=== PATIENT | female | born 1995 | race Caucasian/White ===

== ENCOUNTER 2023-03-12 20:34 | Emergency (ER) | payer SELFPAY ==
[2023-03-12 20:35] VITALS: BP 127/72; PULSE 73; RESP 18; TEMP 36.8; O2SAT 98
--- NOTE | 2023-03-12 20:46 | ED_ITS ---
HPI - Extremity Injury (Lower) General Chief Complaint: Extremity Injury, Lower Stated Complaint: right lower leg pain Time Seen by Provider: 03/12/23 20:38 Source: patient Mode of arrival: ambulatory Limitations: no limitations History of Present Illness HPI Narrative: patient presents with sudden onset of pain had the right lower leg anteriorly laterally slightly distal to the right knee. Patient denies any trauma. 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 She denies any fever, chills, nausea, vomiting, trauma, chest pain or shortness of breath Review of Systems Review of Systems: All systems reviewed & are unremarkable except as noted in HPI and below Exam Narrative: General appearance: Well-developed, well-nourished Skin: Normal color Chest and respiratory: Airway patent, no respiratory distress, no accessory muscle use Heart: Regular rate/rhythm Vascular: Normal peripheral pulses, normal capillary refill. Musculoskeletal: right lower leg examination showed varicose veins anterior lateral just distal to the right knee, waldemar like feeling severely tender bluish discoloration with some varicose veins of the right leg more than the left leg Neurologic: Alert and oriented ?3, TENONER OPERATOR is normal as tested, no gross motor deficit Course Vital Signs Vital signs: Vital Signs Temperature 36.8 C 03/12/23 20:35 Temperature 36.8 C 03/12/23 20:35 MDM - Extremity Injury (Lower) MDM Narrative Medical decision making narrative: superficial thrombophlebitis secondary to varicose vein secondary to long hours of standing a day secondary to her job as a cook. Differential Diagnosis Differential diagnosis: Likely other ( Varicose vein, thrombophlebitis) Critical Care Time Critical Care Time Critical Care Time: No Discharge Plan Discharge Clinical Impression: Thrombophlebitis, Varicose vein of leg Patient Disposition: Home, Self-Care Condition: Stable Instructions: Superficial Thrombophlebitis (ED) Additional Instructions: keep leg elevated Compression stocking Warm compresses 10-15 minutes up to 5 times a day Ibuprofen 600 every 6 hours as needed Avoid longstanding. Follow-up/Referrals: UNKNOWN,DOCTOR [Primary Care Provider] - Stand Alone Forms: Work/School Release IP
== END 2023-03-12 21:01 | disposition home or self-care (01) ==
PROVIDERS: Emergency Provider Emergency Medicine
DX: I80.01 Phlebitis and thrombophlebitis of superficial vessels of right lower extremity (principal); I83.92 Asymptomatic varicose veins of left lower extremity
CPT/HCPCS: 99281

== ENCOUNTER 2023-06-16 16:12 | Emergency (ER) | payer SELFPAY ==
[2023-06-16 16:13] VITALS: BP 136/93; PULSE 64; RESP 20; TEMP 36.8; O2SAT 97
[2023-06-16 16:29] VITALS: PULSE 72; RESP 18; O2SAT 99
[2023-06-16 16:30] VITALS: O2SAT 99
[2023-06-16 16:31] VITALS: BP 133/73; O2SAT 99
--- NOTE | 2023-06-16 16:40 | ED.URI ---
HPI - URI/Sore Throat General Chief Complaint: Upper Respiratory Infection Stated Complaint: high bp; dizziness Time Seen by Provider: 06/16/23 16:26 Source: patient Mode of arrival: ambulatory Limitations: no limitations History of Present Illness HPI Narrative: Patient is a 28-year-old female with significant past medical history who presents today for dizziness and URI. Patient reports that she had dizziness today and felt the room spinning and she an episode of vertigo. She has been battling a URI for the last week now. She states it has been getting worse she has had cough, congestion, rhinorrhea. She is his blood pressure from like it was a little high at times rate was little up but she was very worried because her mother made her worry about it and the symptoms of vertigo. MD elicited complaint: rhinorrhea, nasal congestion and other (vertigo) Onset (ago): hour(s) Consistency: constant Severity: mild Description of mucous: clear Able to tolerate fluids by mouth: Yes Exacerbating factors: nothing Relieving factors: nothing Associated symptoms: other (dizziness ) Treatments prior to arrival: none Review of Systems Review of Systems: All systems reviewed & are unremarkable except as noted in HPI and below Constitutional: Constitutional: Reports as per HPI Eyes: Eyes: Reports no additional eye complaints ENT: Reports as per HPI Cardiovascular: Cardiovascular: Reports no additional cardiovascular complaints Respiratory: Respiratory: Reports chest congestion and Reports cough Gastrointestinal: Gastrointestinal: Reports no additional gastrointestinal complaints Genitourinary: Genitourinary: Reports no additional female genitourinary complaints Musculoskeletal: Musculoskeletal: Reports no additional musculoskeletal complaints Integumentary/Breasts: Skin/Breast: Reports system reviewed and no additional complaints, except as docu Neurologic: Reports vertigo and Reports dizziness Psychiatric: Psychiatric: Reports no additional psychiatric complaints Endocrine: Endocrine: Reports no additional endocrine complaints Hematologic/Lymphatic: Hematologic/Lymphatic: Reports no additional hematologic/lymphatic complaints Allergic/Immunologic: Allergic/Immunologic: Reports no additional allergic/immunologic complaints Exam Const: General: healthy appearing Nutritional Appearance: well nourished Orientation/consciousness: patient oriented x3 HENMT: Head: normal to inspection Ears: external ears normal Face/Nose/Sinus: Normal external nose present Face and sinus: normal facial exam Eyes: Conjunctivae: conjunctivae normal Pupils: Equal, round and reactive pupils present EOM: EOMs intact bilaterally Neck: Neck: normal visual inspection Chest: Chest palpation & inspection: normal inspection of the chest Resp: Effort & Inspection: normal respiratory effort Auscultation: clear to auscultation bilaterally Cardio: Rate: regular rate Rhythm: regular rhythm GI: GI Palp: Yes Soft to palpation : General: Yes bladder normal to palpation Back/Spine/Pelvis: Back: no CVA tenderness Skin: General skin exam: normal color Rashes: no rashes Wounds: no wounds Neuro: General: patient oriented x3 Cranial nerves: Yes Nystagmus not present Speech: normal speech Gait exam (Neuro): Normal gait present Extrem: General: normal to inspection Psych: Mental Status: mental status grossly normal Course Vital Signs Vital signs: Vital Signs Temperature 98.2 F 06/16/23 16:13 Pulse Rate 64 06/16/23 16:13 Respiratory Rate 20 06/16/23 16:13 Blood Pressure 136/93 H 06/16/23 16:13 Pulse Oximetry 97 06/16/23 16:13 Oxygen Delivery Room Air 06/16/23 16:13 Temperature 98.2 F 06/16/23 16:13 Pulse Rate 64 06/16/23 16:13 Respiratory Rate 20 06/16/23 16:13 Blood Pressure 136/93 H 06/16/23 16:13 Pulse Oximetry 97 06/16/23 16:13 Oxygen Delivery Room Air 06/16/23 16:13 MDM - URI/Sor
[2023-06-16 16:45] VITALS: O2SAT 100
[2023-06-16 16:47] VITALS: BP 128/81; PULSE 74; RESP 20; O2SAT 99
== END 2023-06-16 16:51 | disposition home or self-care (01) ==
PROVIDERS: Emergency Provider Family Medicine; PCP Family Medicine
DX: J06.9 Acute upper respiratory infection, unspecified (principal); R42 Dizziness and giddiness
CPT/HCPCS: 99283

== ENCOUNTER 2023-09-27 15:39 | Outpatient (CLI) | payer OTHER, SELFPAY ==
--- NOTE | 2023-09-27 15:46 | ECHO_ITS ---
Patient Info Name: Hollie Keating Age: 28 years : 1995 Gender: Female Ht: 64 in Wt: 220 lbs BSA: 2.17 m2 HR: 85 bpm BP: 124 / 79 mmHg Technical Quality: Fair Exam Date: 09/27/2023 3:39 PM Exam Location: Echo Lab Patient Status: Outpatient Admit Date: 09/27/2023 Staff Ordering Physician: Larry David MD Street Commissioner: Xavi Patel RDCS Attending Provider: Larry David MD Referring Physician: Joann DIETZ; Exam Type: CA echo doppler color flow Study Info Indications R94.31 - Abnormal electrocardiogram ECG EKG Complete two-dimensional, color flow and Doppler transthoracic echocardiogram is performed. Summary 1. Complete two-dimensional, color flow and Doppler transthoracic echocardiogram is performed. 2. Left ventricular chamber dimension is normal. 3. Left ventricular systolic function is normal, estimated at 60-65%. 4. The left ventricular diastolic function is normal. 5. E/e' 7 is not elevated. 6. There is trace tricuspid valve regurgitation. 7. No pulmonary hypertension, estimated pulmonary arterial systolic pressure is 17 mmHg. Left Ventricle E/e' 7 is not elevated. Left ventricular chamber dimension is normal. Left ventricular systolic function is normal, estimated at 60-65%. The left ventricular diastolic function is normal. Right Ventricle Right ventricular systolic function is normal and with normal TAPSE 2.4 cm. Right ventricular chamber dimension is normal. Left Atria Left atrial chamber dimension is normal. Right Atria Right atrial chamber dimension is normal. Aortic Valve The aortic valve is not well visualized. Cannot determine number of aortic valve leaflets. There is no aortic valve stenosis. There is no aortic valve regurgitation. Pulmonic Valve There is no pulmonic regurgitation. Mitral Valve There is no mitral valve stenosis. There is no mitral valve regurgitation. Tricuspid Valve There is trace tricuspid valve regurgitation. No pulmonary hypertension, estimated pulmonary arterial systolic pressure is 17 mmHg. Pericardium/Pleural There is no pericardial effusion. Inferior Vena Cava Normal inferior vena cava with >50% collapse upon inspiration consistent with normal right atrial pressure, 5 mmHg. Aorta The aortic root size at the sinus of Valsalva is normal. Left Ventricular Outflow Tract Name Value Normal LVOT 2D LVOT Diameter 2.1 cm LVOT Doppler LVOT Peak Velocity 123 cm/s LVOT Peak Gradient 6 mmHg LVOT Mean Gradient 3 mmHg LVOT VTI 25 cm LVOT VTI/AV VTI Ratio 0.8 LVOT Stroke Volume 82 ml Pulmonic Valve Name Value Normal PV Doppler PV Peak Velocity 99 cm/s PV Peak Gradient 4 mmHg Mitral Valve
== END 2023-09-27 15:40 | disposition home or self-care (01) ==
LOC: CHSIMG 15:40
PROVIDERS: PCP Family Medicine; Visit Provider Family Medicine
DX: R94.31 Abnormal electrocardiogram [ECG] [EKG] (principal)
CPT/HCPCS: 93306

== ENCOUNTER 2024-01-24 18:02 | Emergency (ER) | payer OTHER, SELFPAY ==
[2024-01-24] VITALS (9 sets, daily range): BP systolic 116–132; BP diastolic 62–74; PULSE 64–101; RESP 12–21; TEMP 36.8–37.2; O2SAT 95–99
--- NOTE | ~2024-01-24 | XR_ITS ---
EXAMINATION: XR chest 1V portable DATE: 01/24/2024 18:41 INDICATION: Shortness of breath. TECHNIQUE: A single frontal view of the chest was obtained. COMPARISON: None. FINDINGS: There is no pneumonia, pleural effusion, or pneumothorax. The heart size is normal. IMPRESSION: 1. No acute cardiopulmonary disease. Reviewed, dictated and finalized at location A.
--- NOTE | 2024-01-24 18:29 | PC.NURSE ---
covid test administered and sent to lab at same time as strep test
[2024-01-24] MEDS: IPRATROPIUM 0.5 MG/ALBUTEROL SULFATE 2.5 MG AMPUL.NEB 3 ML INHALATION (18:44)
[2024-01-24 18:48] LABS: Basophils Absolute Auto 0.04 K/mm3 (0.00-0.10); Basophils Percent Auto 0.3 % (0.0-1.0); Eosinophils Percent Auto 0.7 % (1.0-6.0); Hematocrit 42.3 % (35.0-49.0); Hemoglobin 14.5 g/dL (12.0-15.0); Immature Granulocyte Absolute 0.08 K/mm3 (0.00-0.00); Immature Granulocyte Percent A 0.6 % (0.0-0.0); Lymphocytes Percent Auto 29.1 % (18.0-42.0); Mean Corpuscular HGB Conc 34.3 g/dL (32-36); Mean Corpuscular Volume 87.6 fL (78.0-102.0); Mean Platelet Volume 9.4 fl (9.2-11.8); Monocytes Absolute Auto 1.05 K/mm3 (0.10-0.90); Monocytes Percent Auto 7.6 % (2.0-11.0); Neutrophils Absolute Auto 8.49 K/mm3 (1.70-7.20); Neutrophils Percent Auto 61.7 % (50.0-70.0); Platelet Count Result 325 K/mm3 (150-420); Red Blood Count 4.83 M/mm3 (4.20-5.40); Red Cell Distribution Width 12.7 % (11.6-14.4); White Blood Count 13.8 K/mm3 (4.8-10.8)
[2024-01-24 19:04] LABS: Alanine Aminotransferase 40 U/L (14-59); Albumin Level 3.9 g/dL (3.4-5.0); Alkaline Phosphatase 102 U/L (46-116); Anion Gap 10 mmol/L (4-12); Aspartate Amino Transferase 28 U/L (15-37); Bilirubin,Total 0.2 mg/dL (0.00-1.00); Blood Urea Nitrogen 17 mg/dL (7-18); Calcium 9.1 mg/dL (8.5-10.1); Carbon Dioxide 28 mmol/L (21-32); Chloride 101 mmol/L (98-108); Estimated CRCL calculation 104 ml/min; Estimated Glomerular Filt Rate > 60; Glucose 92 mg/dL (70-99); Osmolality Calculated 289 mOsm/kg (285-295); Potassium 3.5 mmol/L (3.5-5.1); Sodium 139 mmol/L (136-145); Total Protein 8.3 g/dL (6.4-8.2)
[2024-01-24 19:15] LABS: Strep Group A RT-PCR NOT DETECTED (Negative)
[2024-01-24 19:26] LABS: Influenza A QL RT-PCR Negative (Negative); Influenza B QL RT-PCR Negative (Negative); RSV RNA, RT-PCR Negative (Negative); SARS-CoV-2 RNA PCR Negative (Negative)
--- NOTE | 2024-01-24 19:33 | ED.SOB ---
HPI - SOB/Dyspnea General Chief Complaint: Shortness of Breath/Dyspnea Stated Complaint: SOB Time Seen by Provider: 01/24/24 18:19 Source: patient Mode of arrival: ambulatory Limitations: no limitations History of Present Illness HPI Narrative: this is a 28-year-old female recently diagnosed with a sinus infection by her primary care physician and has been on antibiotics and started developing some mild shortness of breath with wheezing O2 sats at 99% on room air otherwise no chest pain does have a mild nonproductive cough with no nausea vomiting no abdominal pain. MD elicited complaint: shortness of breath and cough Onset (ago): day(s) Related Data Home Medications Medication Instructions Recorded Confirmed buspirone 15 mg tablet 15 mg PO BID 01/24/24 01/24/24 citalopram 40 mg tablet 40 mg PO DAILY 01/24/24 01/24/24 levothyroxine 125 mcg tablet 125 mcg PO DAILY 01/24/24 01/24/24 methylprednisolone 4 mg tablets in See Rx Instructions .Route .COMPLEX 01/24/24 01/24/24 a dose pack metoprolol tartrate 25 mg tablet 25 mg PO BID 01/24/24 01/24/24 Allergies Allergy/AdvReac Type Severity Reaction Status Date / Time peanut Allergy Unknown Verified 01/24/24 18:29 Penicillins Allergy Unknown Verified 01/24/24 18:29 walnut Allergy Unknown Verified 01/24/24 18:29 Review of Systems Review of Systems: All systems reviewed & are unremarkable except as noted in HPI and below PMFSH Past Medical History Medical History Patient denies medical problems Exam Const: General: healthy appearing Nutritional Appearance: well nourished Orientation/consciousness: patient oriented x3 Limitations: no limitations HENMT: Head: normal to inspection Eyes: Conjunctivae: conjunctivae normal Chest: Chest palpation & inspection: normal inspection of the chest Resp: Effort & Inspection: normal respiratory effort Auscultation: clear to auscultation bilaterally Cardio: Rate: regular rate Rhythm: regular rhythm GI: GI Palp: Yes Soft to palpation Auscultation: normal bowel sounds Skin: General skin exam: normal color Rashes: no rashes Course Course Emergency Course: blood work unremarkable, chest x-ray shows no acute cardiopulmonary abnormalities, the patient did receive a breathing treatment after reassessment possible reassessment does have improved symptoms. Vital Signs Vital signs: Vital Signs Temperature 36.8 C 01/24/24 18:06 Pulse Rate 90 01/24/24 18:06 Respiratory Rate 12 01/24/24 18:06 Blood Pressure 116/62 01/24/24 18:06 Pulse Oximetry 97 01/24/24 18:06 Oxygen Delivery Room Air 01/24/24 18:06 Temperature 36.8 C 01/24/24 18:06 Pulse Rate 72 01/24/24 18:55 Respiratory Rate 20 01/24/24 18:55 Blood Pressure 116/62 01/24/24 18:06 Pulse Oximetry 99 01/24/24 18:55 Oxygen Delivery Room Air 01/24/24 18:26 MDM - SOB/Dyspnea Lab Data 01/24/24 18:36 01/24/24 18:36 Labs: Lab Results 01/24/24 Range/Units 18:36 WBC 13.8 H (4.8-10.8) K/mm3 RBC 4.83 (4.20-5.40) M/mm3 Hgb 14.5 (12.0-15.0) g/dL Hct 42.3 (35.0-49.0) % MCV 87.6 (78.0-102.0) fL MCH 30.0 (27.0-31.0) pg MCHC 34.3 (32-36) g/dL RDW 12.7 (11.6-14.4) % Plt Count 325 (150-420) K/mm3 MPV 9.4 (9.2-11.8) fl Immature Gran % (Auto) 0.6 H (0.0-0.0) % Neut % (Auto) 61.7 (50.0-70.0) % Lymph % (Auto) 29.1 (18.0-42.0) % [place] % (Auto) 7.6 (2.0-11.0) % Eos % (Auto) 0.7 L (1.0-6.0) % Baso % (Auto) 0.3 (0.0-1.0) % Lymph # (Auto) 4.00 (1.10-4.50) K/mm3 [place] # (Auto) 1.05 H (0.10-0.90) K/mm3 Eos # (Auto) 0.10 (0.02-0.50) K/mm3 Baso # (Auto) 0.04 (0.00-0.10) K/mm3 Abs Immat Gran (auto) 0.08 H (0.00-0.00) K/mm3 Absolute Neuts (auto) 8.49 H (1.70-7.20) K/mm3 Absolute Nucleated RBC 0.00 (0.00-0.00) K/mm3 Nucleated RBC % 0.0 (0-0.0) % Sodium 139 (136-145) mmol/L Potass
== END 2024-01-24 20:08 | disposition home or self-care (01) ==
PROVIDERS: Emergency Provider Emergency Medicine; PCP Physician Assistant
DX: J20.9 Acute bronchitis, unspecified (principal); Z79.899 Other long term (current) drug therapy; Z20.822 Contact with and (suspected) exposure to COVID-19
CPT/HCPCS: 36415; 71045; 80053; 85025; 87637; 87651; 99284

== ENCOUNTER 2024-12-19 18:29 | Emergency (ER) | payer OTHER, SELFPAY ==
[2024-12-19] VITALS (8 sets, daily range): BP systolic 118–136; BP diastolic 68–89; PULSE 88; RESP 18; TEMP 36.5–36.9; O2SAT 96–98
--- NOTE | ~2024-12-19 | CT_ITS ---
EXAMINATION: CT brain wo con DATE: 12/19/2024 19:11 INDICATION: Posterior headache TECHNIQUE: Computed tomography (CT) of the head was performed without intravenous contrast. Sagittal and coronal reconstructions were performed. The mA was adjusted according to patient size. Iterative reconstruction technique was employed. The dose-length product was 605.33 mGy-cm. COMPARISON: None FINDINGS: No acute intracranial hemorrhage, acute infarction or abnormal extra axial fluid collection. Ventricles are normal and symmetric. Basal cisterns are patent. No mass/mass effect. There is a marked esotropia with nasal deviation of both eyes. Orbits are otherwise normal. The paranasal sinuses and mastoid air cells are normal. IMPRESSION: 1. Prominent esotropia. Otherwise normal head CT. Correlate with ophthalmic exam. Reviewed, dictated and finalized at location A. IMPRESSION: 1. Prominent esotropia. Otherwise normal head CT. Correlate with ophthalmic exa tiana
--- OUTSIDE RECORDS SUMMARY | 2024-12-19 18:32 | XMS_ITS | Encounter Summary ---
Author Organization [facility] Address [facility] [place] [address] Care Team Providers Care Graduate Advisor Name Role Phone Andrea Aguero MD Primary Care Provider [phone] Larry David MD Primary Care Provider Encounter Details Date Type Department Care Team (Late st Contact Info) Description 09/28/2018 Abstract SFL CONVERSION [address] [place] [address] , Generic MD Nat Social History Tobacco Use Types Packs/Day Years Used Date Smoking Tobacco: Every Day Smokeless Tobacco: Never Alcohol Use Standard Drinks/Week Comments No 0 (1 standard drink = 0.6 oz pur e alcohol) Comments No Sex and Gender Information Value Date Recorded Sex Assigned at Not on file Legal Sex Female 4:04 PM CDT Gender Identity Not on file Sexual Orientation Not on file documented as of this encounter Plan of Treatment Not on file documented as of this encounter Visit Diagnoses Not on filedocumented in this encounter Care Teams Graduate Advisor Relationship Specialty Start Date End Date Andrea Aguero MD [address] [place] [id number] PCP - General FAMILY PRACTICE 11/11/17 09/01/23 Larry David MD [address] [place] [address] PCP - General FAMILY PRACTICE 09/02/23 documented as of this encounter
--- OUTSIDE RECORDS SUMMARY | 2024-12-19 18:32 | XMS_ITS | Clinical Summary ---
Author Organization [facility] Address [facility] [place] [address] Care Team Providers Care Technology Infusion Specialist Name Role Phone Larry David MD Primary Care Provide r Allergies Active Allergy Reactions Criticality Noted Date Comments Peanut Anaphylaxis High 09/12/2023 Penicillins Penicillins Hives Medium 09/12/2023 [place] Anaphylaxis High 09/12/2023 Medications levothyroxine (SYNTHROID) 125 mcg tablet 07/25/2023 Active busPIRone (BUSPAR) 15 mg tablet 09/03/2023 Active citalopram (CeleXA) 40 mg tablet 07/25/2023 Active aspirin 81 mg enteric coated tablet Take 1 tablet (81 mg total) by mouth daily Active metoprolol tartrate (LOPRESSOR) 25 mg immediate release tabletIndication s:Palpitations,S inus tachycardia Take 1 tablet (25 mg total) by mouth 2 (two) times a day 60 tablet 3 11/23/2023 Active Active Problems Problem Noted Date Diagnosed Date Other social stressor 09/12/2023 Anxiety 09/12/2023 Essential hypertension 09/12/2023 Tobacco abuse 09/12/2023 History of methamphetamine abuse 09/12/2023 Chest heaviness 09/12/2023 Abnormal EKG 09/12/2023 Hypothyroidism 09/12/2023 Intermittent urinary incontinence 05/16/2011 Urinary tract infection 04/05/2010 Hypertension 04/05/2010 Surgical History Surgery Date Site/Laterality Comments SECTION Medical History Medical History Date Comments Thyroid disease Anxiety and depression Social History Tobacco Use Types Packs/Day Years Used Date Smoking Tobacco: Every Day Cigarettes Passive Smoke Exposure: Past Smokeless Tobacco: Never Tobacco Cessation:Ready to Q uit: Not Asked; Counseling Given: Not Answered Personal Safety Answer Date Recorded Getting School Help Needed Not on file 09/05 Comments Unknown Sex and Gender Information Value Date Recorded Sex Assigned at Not on file Legal Sex Female 9:51 AM CDT Gender Identity Not on file Sexual Orientation Not on file Obstetrics History Last Filed Vital Signs Vital Sign Reading Time Taken Comments Blood Pressure 137/89 12/25/2023 9:37 AM CDT Pulse 69 12/25/2023 9:37 AM CDT Temperature - - Respiratory Rate - - Oxygen Saturation 97% 11/23/2023 2:53 PM CDT Inhaled Oxygen Concentration - - Weight 99.8 kg (220 lb) 11/23/2023 2:53 PM CDT Height 162.6 cm (5' 4) 11/23/2023 2:53 PM CDT Body Mass Index 37.76 11/23/2023 2:53 PM CDT Plan of Treatment Health Maintenance Due Date Last Done Comments Cervical Cancer Screening 1995 Depression Screening 1995 Hepatitis C Screening 1994 Varicella Vaccines (1 of 2 - 13+ 2-dose series) 2007 Hepatitis B Screening 2012 Regular Well Visit/Exam 18-64 2012 Pneumococcal vaccine <65 (1 of 2 - PCV) 2013 HPV Vaccines (1 - 3-dose SCDM series) 2021 Influenza Vaccine (#1) 2024 08/12/2015, 2009 DTaP/Tdap/Td Vaccine (4 - Td or Tdap) 10/28/2028 10/28/2018, 06/15/2015, 11/08/2014 Insurance [facility] Care Teams Technology Infusion Specialist Relationship Specialty Start Date End Date Larry David MD [address] [place] [address] PCP - General Family Medicine 09/06/23
--- OUTSIDE RECORDS SUMMARY | 2024-12-19 18:32 | XMS_ITS | Clinical Summary ---
Author Organization [facility] Address [facility] [place] [address] Care Team Providers Care Distillation Operator Name Role Phone Larry David MD Primary Care Provider [phone] Allergies Active Allergy Reactions Criticality Noted Date Comments Ciprofloxacin Rash Low 06/16/2011 Was able to take if taking benadryl prior to cipro Peanut-Containing Drug Products Anaphylaxis High 11/11/2017 Penicillins Rash Low 06/16/2011 [place] ([place]) Hives Medium 11/11/2017 Medications levothyroxine 100 MCG tablet Take 100 mcg by mouth every morning. Active lisinopril (PRINIVIL) 10 MG tablet Take 1 tablet (10 mg total) by mouth daily. 10/11/2023 Active busPIRone (BUSPAR) 15 MG tablet Take 1 tablet (15 mg total) by mouth 3 (three) times daily. 09/29/2023 Active Active Problems Problem Noted Date Diagnosed Date History of delivery, currently in third trimester ([facility] 11/11/2017 Social History Tobacco Use Types Packs/Day Years Used Date Smoking Tobacco: Every Day Cigarettes Smokeless Tobacco: Never Tobacco Cessation:Ready to Q uit: Not Asked; Counseling Given: Not Answered Alcohol Use Standard Drinks/Week Comments No 0 (1 standard drink = 0.6 oz pur e alcohol) Comments No Sex and Gender Information Value Date Recorded Sex Assigned at Not on file Legal Sex Female 4:04 PM CDT Gender Identity Not on file Sexual Orientation Not on file Last Filed Vital Signs Vital Sign Reading Time Taken Comments Blood Pressure 127/95 11/20/2023 4:00 PM CDT Pulse 79 11/20/2023 4:00 PM CDT Temperature 37 C (98.6 F) 11/20/2023 2:49 PM CDT Respiratory Rate 20 11/20/2023 4:00 PM CDT Oxygen Saturation 98% 11/20/2023 4:00 PM CDT Inhaled Oxygen Concentration - - Weight 101.5 kg (223 lb 12.8 oz) 11/20/2023 2:49 PM CDT Height 162.6 cm (5' 4) 11/20/2023 2:49 PM CDT Body Mass Index 38.42 11/20/2023 2:49 PM CDT Plan of Treatment Health Maintenance Due Date Last Done Comments Cervical Cancer Screening Pa p Smear (Age 30 to 64) Every 3 Years 1994 Annual Physical 1997 Hepatitis C 2012 Hepatitis B Vaccines (1 of 3 - 19+ 3-dose series) 2013 Pneumococcal Vaccine: Pediatrics (0 to 5 Years) and At-Risk Patients (6 to 49 Years) (1 of 2 - PCV) 2013 HPV Vaccines (1 - 3-dose SCD M series) 2021 COVID-19 Vaccine ( - 2023-2 5 season) 2023 Cervical Cancer Screening Pa p with HPV Testing (Age 30 to 64) Every 5 Years 2024 Cervical Cancer Screening wi th HPV 2024 DTaP, Tdap and Td Vaccines ( 4 - Td or Tdap) 10/28/2028 10/28/2018, 06/15/2015, 11/08/2014 Meningococcal B Vaccine Aged Out No l onger eligible based on patient's age to complete this topic Meningococcal Vaccine Aged Out No howie reece eligible based on patient's age to complete this topic RSV Immunizations Under 20 Months Aged Out No longer eligible b ased on patient's age to complete this topic Insurance HE[employer] Advance Directives * Full Code (Latest Code Status on File) Date Activated Date Inactivated Comments 11/11/2017 1:43 PM 11/14/2017 5:31 PM * Full Code Date Activated Date Inactivated Comments 11/11/2017 10:36 AM 11/11/2017 1:43 PM Care Teams Distillation Operator Relationship Specialty Start Date End Date Larry David MD [address] [place] [address] PCP - General FAMILY PRACTICE 09/02/23
--- NOTE | 2024-12-19 18:37 | ED_ITS ---
HPI - Headache General Chief Complaint: Headache Stated Complaint: headache blurred vision Time Seen by Provider: 12/19/24 18:37 Source: patient Mode of arrival: ambulatory Limitations: no limitations History of Present Illness HPI Narrative: patient is a 29-year-old female with known migraines and headaches presents with a left-sided headache that wraps around to the back of her neck on the left side. No fever chills. She has associated nausea. She is having difficulty talking due to the pain in her head. She has a few other miscellaneous complaints of aches and pains and tingling but nothing specific at this time. MD elicited complaint: headache and migraine Pertinent past history: migraines Onset (ago): day(s) ( One) Onset description: gradually Location: left, frontal, temporal, occipital, retro-orbital and down into neck Severity: moderate Pain scale (0-10): 8 Quality & Timing: throbbing, pulsatile, sharp, constant and different than previous headaches Exacerbating factors: movement of head/neck, light and noise Relieving factors: nothing Context: other ( patient having a headache which is slightly different than her normal migraine headaches and it extends mostly on the left side of her head down to the neck all day) Associated symptoms: nausea, photophobia, sensitivity to sound, eye pain ( left) and tingling Treatments prior to arrival: migraine medication Related Data Home Medications ?Medication ?Instructions ?Recorded ?Confirmed ?Last Taken ?Type buspirone 15 mg tablet 15 mg PO BID 01/24/24 Unknown History citalopram 40 mg tablet 40 mg PO DAILY 01/24/2407/14 Unknown History levothyroxine 125 mcg tablet 125 mcg PO DAILY 01/24/24 01/24/24 Unknown History metoprolol tartrate 25 mg tablet 25 mg PO BID 01/24/24 01/24/24 Unknown History Allergies Allergy/AdvReac Type Severity Reaction Status Date / Time peanut Allergy Unknown Verified 12/19/24 18:42 Penicillins Allergy Unknown Verified 12/19/24 18:42 walnut Allergy Unknown Verified 12/19/24 18:42 Review of Systems 2 Review of Systems: All systems reviewed & are unremarkable except as noted in HPI and below Constitutional: Constitutional: Reports no additional constitutional complaints Eyes: Eyes: Reports no additional eye complaints ENT: Reports system reviewed and no additional complaints, except as documented Cardiovascular: Cardiovascular: Reports no additional cardiovascular complaints Respiratory: Respiratory: Reports no additional respiratory complaints Gastrointestinal: Gastrointestinal: Reports no additional gastrointestinal complaints Genitourinary: Genitourinary: Reports no additional female genitourinary complaints Musculoskeletal: Musculoskeletal: Reports no additional musculoskeletal complaints Integumentary/Breasts: Skin/Breast: Reports system reviewed and no additional complaints, except as docu Neurologic: Reports system reviewed and no additional complaints, except as documented Psychiatric: Psychiatric: Reports no additional psychiatric complaints Endocrine: Endocrine: Reports no additional endocrine complaints Hematologic/Lymphatic: Hematologic/Lymphatic: Reports no additional hematologic/lymphatic complaints Allergic/Immunologic: Allergic/Immunologic: Reports no additional allergic/immunologic complaints PMFSH Past Medical History Medical History Patient denies medical problems Exam 2 Const: General: healthy appearing Nutritional Appearance: well nourished Orientation/consciousness: patient oriented x3 HENMT: Head: normal to inspection Ears: external ears normal F maria elena/Nose/Sinus: Normal external nose present Eyes: Conjunctivae: conjunctivae normal Pupils: Equal, round and reactive pupils present EOM: EOMs intact bilaterally Neck: Neck: normal visual inspection Chest: Chest palpation & inspection: normal inspection of the chest Resp: Effort & Inspection: normal respiratory effort and not labored A uscultation: clear to auscultation bilaterally and no crackles Cardio: Rate: regular rate Rhythm: regular rhythm Heart sounds: no murmurs GI: Inspection: non-distended GI Palp: Yes Soft to palpation and No Tenderness to palpation present (GI) Auscultation: normal bowel sounds : General: Yes bladder normal to palpation Back/Spine/Pelvis: Back: no CVA tenderness Skin: General skin exam: normal color Rashes: no rashes Wounds: no wounds Neuro: General: patient oriented x3, moves all extremities and no meningeal signs Cranial nerves: Yes Nystagmus not present Speech: normal speech G ait exam (Neuro): Normal gait present Extrem: General: normal to inspection Psych: Mental Status: mental status grossly normal Affect: normal affect Attitude: cooperative Course Vital Signs Vital signs: Vital Signs Temperature 36.9 C 12/19/24 18:33 Pulse Rate 88 12/19/24 18:33 Respiratory Rate 18 12/19/24 18:33 Blood Pressure 120/75 12/19/24 18:33 Pulse Oximetry 97 12/19/24 18:33 Oxygen Delivery Room Air 12/19/24 18:33 Temperature 36.9 C 12/19/24 18:33 Pulse Rate 88 12/19/24 18:33 Respiratory Rate 18 12/19/24 18:33 Blood Pressure 120/75 12/19/24 18:33 Pulse Oximetry 97 12/19/24 18:33 Oxygen Delivery Room Air 12/19/24 18:33 MDM - Headache MDM Narrative Medical decision making narrative: patient is a 29-year-old female with a headache different than her migraines at this time and it consumes her left side of her head down to her neck. We will try the triple treatment with IV fluid for migraine headaches. Check urine and urine . Check CT head. Basic labs. Patient was getting good relief and will be discharged at 50% reduction. UTI treated. Lab Data Attestation: I reviewed the patient's lab results. 12/19/24 20:07 12/19/24 20:07 Labs: Lab Results 12/19/24 12/19/24 12/19/24 Range/Units 18:32 18:50 20:07 WBC 9.4 (4.8-10.8) K/mm3 RBC 4.62 (4.20-5.40) M/mm3 Hgb 13.7 (12.0-15.0) g/dL Hct 41.8 (35.0-49.0) % MCV 90.5 (78.0-102.0) fL MCH 29.7 (27.0-31.0) pg MCHC 32.8 (32-36) g/dL RDW 13.3 (11.6-14.4) % Plt Count 286 (150-420) K/mm3 MPV 9.5 (9.2-11.8) fl Immature Gran % (Auto) 0.4 H (0.0-0.0) % Neut % (Auto) 58.0 (50.0-70.0) % Lymph % (Auto) 32.6 (18.0-42.0) % [place] % (Auto) 6.6 (2.0-11.0) % Eos % (Auto) 2.1 (1.0-6.0) % Baso % (Auto) 0.3 (0.0-1.0) % Lymph # (Auto) 3.05 (1.10-4.50) K/mm3 [place] # (Auto) 0.62 (0.10-0.90) K/mm3 Eos # (Auto) 0.20 (0.02-0.50) K/mm3 Baso # (Auto) 0.03 (0.00-0.10) K/mm3 Abs Immat Gran (auto) 0.04 H (0.00-0.00) K/mm3 Absolute Neuts (auto) 5.43 (1.70-7.20) K/mm3 Absolute Nucleated RBC 0.00 (0.00-0.00) K/mm3 Nucleated RBC % 0.0 (0-0.0) % Sodium 141 (137-145) mmol/L Potassium 3.4 (3.4-5.0) mmol/L Chloride 108 H (98-107) mmol/L Carbon Dioxide 23 (22-30) mmol/L Anion Gap 10 (4-12) mmol/L BUN 11 (7-17) mg/dL Creatinine 0.69 L (0.7-1.0) mg/dL Estim Creat Clear Calc 112 ml/min Estimated GFR > 60 (59 - ) Glucose 104 (65-110) mg/dL POC Capillary Glucose 124 H (65-105) mg/dl Calculated Osmolality 291 (285-295) mOsm/kg Calcium 8.9 (8.4-10.2) mg/dL Total Bilirubin 0.5 (0.2-1.3) mg/dL AST 28 (14-36) U/L ALT 19 (6-35) U/L Alkaline Phosphatase 80 (38-126) U/L Total Protein 7.5 (6.3-8.2) g/dL Albumin 4.2 (3.5-5.1) g/dL Urine Color Light yellow (Yellow) Urine Appearance Cloudy A (Clear) Urine pH 8.0 (5.0-8.0) Ur Specific [place] 1.010 (1.010-1.020) Urine Protein Trace H (Negative) Urine Glucose (UA) Negative (Negative) Urine Ketones Negative (Negative) Ur Blood (Man) Negative (Negative) Urine Nitrate Positive H (Negative) Urine Bilirubin Negative (Negative) Urine Urobilinogen 1.0 (0.2-1.0) mg/dL Leukocyte Esterase Rfl 1+ H (Negative) OSWALD/UL Urine RBC 3-5 H (0-2) /hpf Urine WBC 10-15 H (0-3) /hpf Ur Squamous Epith Cells Few (Few) /hpf Amorphous Sediment Few H (None) Urine Bacteria 4+ H (None) /hpf Urine Test Negative Imaging Data Attestation: I personally reviewed and interpreted this imaging study as follows: Radiologist's impression: CT scan of the head was negative for acute process but does show her chronic esotropia Discharge Plan Discharge Clinical Impression: Cephalgia Qualifiers: Headache type: other headache syndrome Qualified Code(s): G44.89 - Other headache syndrome UTI (urinary tract infection) Qualifiers: Urinary tract infection type: site unspecified Hematuria presence: with hematuria Qualified Code(s): N39.0 - Urinary tract infection, site not specified Patient Disposition: Home Condition: Stable Instructions: Antibiotic Form, Urinary Tract Infection in Women (DC), Acute Headache (ED) Patient Language: Macanese Prescriptions: New sulfamethoxazole-trimethoprim [Bactrim DS] 800-160 mg tablet 1 tablet PO BID 7 Days Qty: 14 0RF No Action citalopram 40 mg tablet 40 mg PO DAILY levothyroxine 125 mcg tablet 125 mcg PO DAILY buspirone 15 mg tablet 15 mg PO BID metoprolol tartrate 25 mg tablet 25 mg PO BID ProAir RespiClick 90 mcg/actuation aerosol powdr breath activated 2 inh inhalation QID PRN (Reason: shortness of breath or wheezing) Qty: 1 0RF Follow-up/Referrals: Flavio,ROSE MARY Davey [Primary Care Provider] Time of Disposition: 20:36
--- NOTE | 2024-12-19 18:52 | PC.NURSE ---
report to stephanie arce. pt ambulatory to bathroom to collect specimen
[2024-12-19 19:10] LABS: Add Urine Microscopic? YES; Glucose Urine UA Negative (Negative); Leukocyte Esterase Ur 1+ LEU/UL (Negative); Nitrate Urine Positive (Negative); Specific Grav Ur 1.010 (1.010-1.020)
[2024-12-19 19:16] LABS: Appearance Urine Cloudy (Clear)
[2024-12-19 19:19] LABS: Pregnancy On Board Control Positive
--- OUTSIDE RECORDS SUMMARY | 2024-12-19 19:23 | XMS_ITS | Clinical Summary ---
Author Organization [facility] Address [facility] [place] [address] Care Team Providers Care Tape Fastener Machine Operator Name Role Phone Larry David MD Primary Care Provide r Allergies Active Allergy Reactions Criticality Noted Date Comments Peanut Anaphylaxis High 09/12/2023 Penicillins Penicillins Hives Medium 09/12/2023 [place] Anaphylaxis High 09/12/2023 Medications levothyroxine (SYNTHROID) 125 [...] or Tdap) 10/28/2028 10/28/2018, 06/15/2015, 11/08/2014 Insurance [facility] Care Teams Tape Fastener Machine Operator Relationship Specialty Start Date End Date Larry David MD [address] [place] [address] PCP - General Family Medicine 09/06/23
--- OUTSIDE RECORDS SUMMARY | 2024-12-19 19:23 | XMS_ITS | Clinical Summary ---
Author Organization [facility] Address formerly [facility] [place] [address] Care Team Providers Care Roofing Apprentice Name Role Phone Larry David MD Primary Care Provider [phone] Allergies Active Allergy Reactions Criticality Noted Date Comments Ciprofloxacin Rash Low 06/16/2011 Was able to take if taking benadryl prior to cipro Peanut-Containing Drug Products Anaphylaxis High 11/11/2017 Penicillins Rash Low 06/16/2011 [place] ([place] [employer]) Hives Medium 11/11/2017 Medications [...] History of delivery, currently in third trimester ([facility]) 11/11/2017 Social History Tobacco Use Types Packs/Day [...] patient's age to complete this topic Insurance [employer] Advance Directives * Full Code (Latest Code Status on File) Date Activated Date Inactivated Comments 11/11/2017 1:43 PM 11/14/2017 5:31 PM * Full Code Date Activated Date Inactivated Comments 11/11/2017 10:36 AM 11/11/2017 1:43 PM Care Teams Roofing Apprentice Relationship Specialty Start Date End Date Larry David MD [address] [place] [address] PCP - General FAMILY PRACTICE 09/02/23
--- OUTSIDE RECORDS SUMMARY | 2024-12-19 19:23 | XMS_ITS | Encounter Summary ---
Author Organization [facility] Address [facility] [place] [address] Care Team Providers Care Store Person Name Role Phone Andrea Aguero MD Primary Care Provider [phone] Larry David MD Primary Care Provider [phone] Encounter Details Date Type Department Care Team (Late st Contact Info) Description 07/07/2017 Abstract [facility] CONVERSION [address] [place] [address] , Generic ConversionMD Social History Tobacco Use Types Packs/Day Years Used Date Smoking Tobacco: Never Assessed Comments Unknown Sex and Gender Information Value Date Recorded Sex Assigned at Not on file Legal Sex Female 4:04 PM CDT Gender Identity Not on file Sexual Orientation Not on file documented as of this encounter Plan of Treatment Not on file documented as of this encounter Visit Diagnoses Not on filedocumented in this encounter Care Teams Store Person Relationship Specialty Start Date End Date Andrea Aguero MD [address] [place] [address] [place] [address] PCP - General FAMILY PRACTICE 11/11/17 09/01/23 Larry David MD [address] [place] [address] PCP - General FAMILY PRACTICE 09/02/23 documented as of this encounter
--- OUTSIDE RECORDS SUMMARY | 2024-12-19 19:23 | XMS_ITS | Encounter Summary ---
Author Organization [facility] Address [facility] [place] [address] Care Team Providers Care Watch Electrician Name Role Phone Andrea Aguero MD Primary Care Provider [phone] Larry David MD Primary Care Provider [phone] Encounter Details Date Type Department Care Team (Late st Contact Info) Description 09/28/2018 Abstract [facility] CONVERSION [address] [place] [address] , Generic MD Nat Social [...] on filedocumented in this encounter Care Teams Watch Electrician Relationship Specialty Start Date End Date Andrea Aguero MD [address] [place] [id number] PCP - General FAMILY PRACTICE 11/11/17 09/01/23 Larry David MD [address] [place] [address] PCP - General FAMILY PRACTICE 09/02/23 documented as of this encounter
[2024-12-19] MEDS: SODIUM CHLORIDE 0.9% IV 1,000 ML 999 ML IV CONT (19:41)
[2024-12-19] MEDS: METOCLOPRAMIDE HCL INJ 10 MG/2 ML VIAL IV PUSH (19:43)
[2024-12-19] MEDS: KETOROLAC 30 MG/ML VIAL (*BKC) IV PUSH (19:44)
[2024-12-19 20:14] LABS: Hematocrit 41.8 % (35.0-49.0); Hemoglobin 13.7 g/dL (12.0-15.0); Immature Granulocyte Percent A 0.4 % (0.0-0.0); Lymphocytes Absolute Auto 3.05 K/mm3 (1.10-4.50); Mean Corpuscular HGB Conc 32.8 g/dL (32-36); Mean Corpuscular Hemoglobin 29.7 pg (27.0-31.0); Mean Corpuscular Volume 90.5 fL (78.0-102.0); Nucleated Red Blood Cells Absolute Auto 0.00 K/mm3 (0.00-0.00); Nucleated Red Blood Cells Perc 0.0 % (0-0.0); Platelet Count Result 286 K/mm3 (150-420); Red Blood Count 4.62 M/mm3 (4.20-5.40); White Blood Count 9.4 K/mm3 (4.8-10.8)
[2024-12-19] MEDS: SULFAMETHOXAZOLE/TRIMETHOPRIM 800/160 MG DS TABLET 2 TAB PO (20:22)
[2024-12-19 20:25] LABS: Alanine Aminotransferase 19 U/L (6-35); Albumin Level 4.2 g/dL (3.5-5.1); Alkaline Phosphatase 80 U/L (38-126); Anion Gap 10 mmol/L (4-12); Aspartate Amino Transferase 28 U/L (14-36); Bilirubin,Total 0.5 mg/dL (0.2-1.3); Blood Urea Nitrogen 11 mg/dL (7-17); Calcium 8.9 mg/dL (8.4-10.2); Carbon Dioxide 23 mmol/L (22-30); Chloride 108 mmol/L (98-107); Estimated CRCL calculation 112 ml/min; Estimated Glomerular Filt Rate > 60; Glucose 104 mg/dL (65-110); Osmolality Calculated 291 mOsm/kg (285-295); Potassium 3.4 mmol/L (3.4-5.0); Sodium 141 mmol/L (137-145); Total Protein 7.5 g/dL (6.3-8.2)
--- NOTE | 2024-12-23 12:48 | PC.NURSE ---
preliminary urine culture reviewed. gram neg bacilli isolated
--- NOTE | 2024-12-24 16:20 | PC.NURSE ---
FINAL URINE CULTURE POSITIVE FOR E COLI PT SENT HOME ON BACTRIM DS BID FOR [address] LOPEZ NO FURTHER ORDERS NEEDED
== END 2024-12-19 21:02 | disposition home or self-care (01) ==
PROVIDERS: Emergency Provider Emergency Medicine; PCP Physician Assistant
DX: G44.89 Other headache syndrome (principal); N39.0 Urinary tract infection, site not specified
CPT/HCPCS: 36415; 70450; 80053; 81001; 81025; 82948; 85025; 87086; 87186; 96361; 96374; 96375; 99284; A9270; J1200; J1885; J2765; J7030